=== PATIENT | female | born 1945 | race Caucasian/White ===

== ENCOUNTER 2021-04-16 07:30 | Day surgery (SDC) | payer MEDICARE, MEDICAID ==
[~2021-04-16] VITALS: Ht 167.6 cm; Wt 81.1 kg
[2021-04-16] VITALS (8 sets, daily range): BP systolic 103–142; BP diastolic 56–80; PULSE 54–106; TEMP 97.3–98.8
[2021-04-16] MEDS ORDERED: LANTUS SOLOS100 U/ML SQ ×2 (09:29→09:31)
[2021-04-16] MEDS ORDERED: PLETAL 100MG T100 MG PO (09:37)
[2021-04-16] MEDS ORDERED: LIPITOR 80MG80 MG PO (09:38)
[2021-04-16] MEDS ORDERED: LOFIBRA160 MG PO (09:40)
[2021-04-16] MEDS ORDERED: NEURONTIN300 MG/CAP PO (09:41)
[2021-04-16] MEDS ORDERED: JANUVIA 100MG100 MG PO (09:41)
[2021-04-16] MEDS ORDERED: TOPROL XL 25MG25 MG PO (09:43)
[2021-04-16] MEDS ORDERED: GLUCOPHAGE500 MG/TAB PO (09:43)
[2021-04-16] MEDS ORDERED: DITROPAN XL10 MG PO (09:44)
--- NOTE | 2021-04-16 13:20 | NUR ---
PT ARRIVES TO ROOM 222 VIA BED WITH [facility]. 02 PER NC @ 3L. SCD'S BILATERALLY TO LEGS. IV IN RH WITH NS TO GRAVITY DRIP @ 125ML/HR. 5 PUNCTURES WOUNDS TO ABDOMEN CDI. PT RESPONDS TO NAME BUT OTHERWISE REST WTIH EYES CLOSED. DENIES NEEDS AT THIS TIME.
[2021-04-16] MEDS ORDERED: MOTRIN 800800 MG/TAB PO (17:32)
[2021-04-16] MEDS ORDERED: PERCOCET 325 MG1 TA2 PO (17:32)
--- NOTE | 2021-04-16 18:15 | NUR ---
1814- REPORT RECEIVED, CARE ASSUMED. 1819- PT REPOSITIONED, TRAY REMOVED, INTRODUCTIONS MADE. SCD'S ON.
--- NOTE | 2021-04-16 21:55 | NUR ---
2154- PT CALLS OUT STATING SHE IS HAVING A HARD TIME BREATHING, NURSE TO BEDSIDE. O2 SAT 95% ON 2L NC. PT DOES NOT APPEAR TO BE IN DISTRESS AND IS WATCHING TV. LUNG SOUNDS CLEAR IN ALL [place]. PT ENCOURAGED TO COUGH AND DEEP BREATH, WHICH SHE DOES. PT ASSISTED TO SCOOT UP IN BED AND HEAD OF BED ELEVATED TO PT COMFORT. PULSE OX LEFT ON TO MONITOR. PT REASSURED OXYGEN LEVEL IS STILL 95%. PT IS DRIFTING OFF TO SLEEP BETWEEN NURSE QUESTIONS. NURSE WILL RECHECK OXYGEN SATS.
--- NOTE | 2021-04-16 22:25 | NUR ---
2225- PT RESTING QUIETLY WITH NO APPARENT DISTRESS. OXYGEN SATURATION AT 94%.
[2021-04-17 00:20] VITALS: BP 110/62; PULSE 85; TEMP 98.1
[2021-04-17 04:25] VITALS: BP 87/61; PULSE 92; TEMP 98.7
[2021-04-17 08:30] VITALS: BP 117/58; PULSE 89; TEMP 98.1
--- NOTE | 2021-04-17 08:30 | NUR ---
Pulse ox 95% on 2L oxygen. Pt up to the bathroom and sitting in the chair. Pulse ox recheck 93% on room air with no apparent distress noted.
--- NOTE | 2021-04-17 10:30 | NUR ---
Pt reports incontinence with nathaly-pad and bed pad completely soaked. Pt was able to void approximately 100ml in toilet. Bladder scan done with no residual urine in the bladder. Information reviewed with Dr. Guidry and orders for discharge home received.
--- NOTE | 2021-04-17 11:10 | NUR ---
Discharge instructions and follow up care reviewed with pt and her daughter at the bedside. Both verbalized an understanding, agreed with the plan and states no questions or concerns at this time.
--- NOTE | 2021-04-17 11:14 | NUR ---
Pt discharge home via wheelchair to private vehicle escorted by her daughter and staff.
--- NOTE | 2021-04-17 13:34 | NUR ---
stopped by before patient was discharged and visited briefly.
== END 2021-04-17 11:14 | disposition home or self-care (01) ==
LOC: SDCO 07:30 → EDBD 07:30 → SDCO 09:30 → OB 13:20 → SDCO 04-17 11:14
DX: D25.9 Leiomyoma of uterus, unspecified (principal); N83.312 Acquired atrophy of left ovary; N81.4 Uterovaginal prolapse, unspecified; R33.8 Other retention of urine; N83.311 Acquired atrophy of right ovary; E11.9 Type 2 diabetes mellitus without complications; I10 Essential (primary) hypertension; E78.00 Pure hypercholesterolemia, unspecified; I73.9 Peripheral vascular disease, unspecified; K21.9 Gastro-esophageal reflux disease without esophagitis; F32.9 Major depressive disorder, single episode, unspecified; E78.5 Hyperlipidemia, unspecified; J43.9 Emphysema, unspecified; F17.210 Nicotine dependence, cigarettes, uncomplicated; Z79.82 Long term (current) use of aspirin; Z79.899 Other long term (current) drug therapy; Z79.84 Long term (current) use of oral hypoglycemic drugs; I25.2 Old myocardial infarction; Z86.14 Personal history of Methicillin resistant Staphylococcus aureus infection
CPT/HCPCS: OP; A4314; C1781; J0690; J1100; J1815; J1885; J2405; J2550; J2704; J2710; J3010; J3475; J7030; J7120

== ENCOUNTER → 2022-01-07 | Outpatient (CLI) | payer MEDICARE, MEDICAID ==
[~2022-01-07] MED LIST: DITROPAN XL10 MG PO; GLUCOPHAGE500 MG/TAB PO; JANUVIA 100MG100 MG PO; LANTUS SOLOS100 U/ML SQ; LIPITOR 80MG80 MG PO; LOFIBRA160 MG PO; MOTRIN 800800 MG/TAB PO; NEURONTIN300 MG/CAP PO; PERCOCET 325 MG1 TA2 PO; PLETAL 100MG T100 MG PO; TOPROL XL 25MG25 MG PO
== END ==
LOC: COL.RAD 07:21
DX: Z01.818 Encounter for other preprocedural examination (principal); I65.22 Occlusion and stenosis of left carotid artery
CPT/HCPCS: Q9967